=== PATIENT | male | born 1965 | race Caucasian/White ===

== ENCOUNTER 2022-12-07 07:02 | Observation (INO) | payer OTHER ==
[2022-12-04 08:38] LABS: BASOPHILS % 0.6 % (0.0-1.0); EOSINOPHILS # (AUTO) 0.2 (0.0-0.4); EOSINOPHILS % 2.5 % (0.0-6.0); HEMATOCRIT 43.8 % (38.2-49.6); HEMOGLOBIN 15.1 g/dL (14.0-18.0); LYMPHOCYTES # (AUTO) 2.1 (1.0-3.2); LYMPHOCYTES % 31.5 % (18.0-39.1); MEAN CORPUSCULAR HEMOGLOBIN 31.1 pg (28-32); MEAN CORPUSCULAR HGB CONC 34.5 g/dL (31-35); MEAN CORPUSCULAR VOLUME 90.1 fL (81-99); MONOCYTES # (AUTO) 0.6 (0.2-0.8); MONOCYTES % 8.6 % (4.4-11.3); NEUTROPHILS # (AUTO) 3.7 (2.1-6.9); NEUTROPHILS % 56.5 % (38.7-80.0); PLATELET COUNT 170 x10e3/uL (140-360); RED BLOOD COUNT 4.86 x10e6/uL (4.3-5.7); RED CELL DISTRIBUTION WIDTH 12.8 % (11.7-14.4)
[2022-12-04 08:56] LABS: ANION GAP 11.6 mmol/L (8-16); CALCIUM 8.8 mg/dL (8.4-10.2); CREATININE, SERUM 0.86 mg/dL (0.72-1.25); INR 0.92; POTASSIUM 4.6 mmol/L (3.5-5.1); PROTHROMBIN TIME 12.9 seconds (11.9-14.5)
[2022-12-04 08:57] LABS: PARTIAL THROMBOPLASTIN TIME 32.7 seconds (23.8-35.5)
[2022-12-07] VITALS (7 sets, daily range): BP systolic 137–149; BP diastolic 73–90; PULSE 80–90; RESP 16–20; TEMP 98–98.8; O2SAT 96–98
[~2022-12-07] VITALS: Ht 177.8 cm; Wt 113.4 kg
[~2022-12-07 07:02] MED LIST: ACETAMINOPHEN 1000 MG/100 ML 100 ML IV ONE; BUPIVACAINE 0.5%/EPI 30 ML SDV INJ ONE; CRESTOR10 MG PO; LOSARTAN POTASS25 MG PO; ONDANSETRON ODT4 MG PO; PROPRANOLOL HCL80 MG PO; SERTRALINE HCL100 MG PO; SUGAMMADEX SODIUM 200 MG/2 ML VIAL IV ONE; THROMBIN FOR SOLN 5,000 UNIT VIAL ONE; Vancomycin IV 1 GM VIAL ONE; ZETIA10 MG PO
[2022-12-07] MEDS ORDERED: LACTATED RINGER'S 1,000 ML ONE (07:23)
[2022-12-07] MEDS ORDERED: CEFAZOLIN SODIUM 2 GM ONE (07:23)
[2022-12-07] MEDS: FENTANYL CITRATE/PF 100MCG/2 ML INJ ONE ×2 (10:26→11:00)
[2022-12-07] MEDS ORDERED: HYDROCODON-ACE1 EA12 PO (10:28)
[2022-12-07] MEDS ORDERED: MORPHINE SULFATE 5 MG/ML VIAL IM PRN (10:30)
[2022-12-07] MEDS ORDERED: OXYCODONE/ACETAMINOPHEN 5-325 1 EACH TABLET PO PRN (10:30)
[2022-12-07] MEDS ORDERED: PROMETHAZINE HCL (IM) 25 MG/ML VIAL IM PRN (10:30)
[2022-12-07] MEDS ORDERED: LACTATED RINGER'S 1,000 ML IV SCH (10:30)
[2022-12-07] MEDS ORDERED: ONDANSETRON HCL INJ 2MG/ML 2ML 2 MG/ML VIAL IV PRN (10:30)
[2022-12-07] MEDS ORDERED: ACETAMINOPHEN 325 MG TAB PO PRN (10:30)
[2022-12-07] MEDS ORDERED: MAGNESIUM/ALUMINUM/SIMETHICONE 30 ML UDC PO PRN (10:30)
[2022-12-07] MEDS ORDERED: CARISOPRODOL 350 MG TAB PO PRN (10:30)
[2022-12-07] MEDS ORDERED: ZOLPIDEM TARTRATE 5 MG TAB PO PRN (10:30)
[2022-12-07] MEDS ORDERED: CEPACOL SORE THROAT LOZENGES PO PRN (10:30)
[2022-12-07] MEDS: HYDROMORPHONE 2MG/ML 2 MG/ML ML IV PRN ×3 (11:53→20:25)
[2022-12-07] MEDS ORDERED: FENTANYL CITRATE/PF 100MCG/2 ML INJ ONE (12:52)
[2022-12-07] MEDS ORDERED: KETOROLAC TROMETHAMINE 30 MG/ML VIAL ONE (13:05)
[2022-12-07] MEDS ORDERED: SEVOFLURANE INHAL SOLN 250 ML PEN BTL ONE (13:05)
[2022-12-07] MEDS ORDERED: POVIDONE IODINE 0.05% 0.05 % ML PO ONE (13:05)
[2022-12-07] MEDS ORDERED: EPHEDRINE SULFATE INJ 50 MG/ML VIAL ONE (13:05)
[2022-12-07] MEDS ORDERED: LIDOCAINE HCL 2% LOCAL INJ 5 ML SDV VIAL INJ ONE (13:05)
[2022-12-07] MEDS ORDERED: PROPOFOL IV EMULSION 10 MG/ML 20 ML VIAL ONE (13:05)
[2022-12-07] MEDS ORDERED: ONDANSETRON HCL INJ 2MG/ML 2ML 2 MG/ML VIAL ONE (13:05)
[2022-12-07] MEDS ORDERED: DEXAMETHASONE SOD PHOS INJ 4 MG/ML SDV ONE (13:05)
[2022-12-08] MEDS: HYDROMORPHONE 2MG/ML 2 MG/ML ML IV PRN ×3 (00:33→08:24)
[2022-12-08 00:40] VITALS: BP 122/62; PULSE 78; RESP 17; TEMP 98.3; O2SAT 98
[2022-12-08 04:00] VITALS: BP 112/71; PULSE 79; RESP 20; TEMP 98.6; O2SAT 98
[2022-12-08 08:17] VITALS: BP 165/90; PULSE 84; RESP 19; TEMP 97.9; O2SAT 94
[2022-12-08 09:00] VITALS: BP 165/90; PULSE 84; RESP 19; TEMP 97.9; O2SAT 94
[2022-12-08] MEDS ORDERED: ONDANSETRON HCL 4 MG ORAL DISINTEGRATING TAB PO SCH (09:00)
[2022-12-08] MEDS ORDERED: LOSARTAN POTASSIUM 25 MG TAB PO SCH (09:00)
[2022-12-08] MEDS ORDERED: PROPRANOLOL HCL 80 MG CAPCR PO SCH (09:00)
[2022-12-08] MEDS ORDERED: SERTRALINE HCL 100 MG TAB PO SCH (09:00)
[2022-12-08] MEDS ORDERED: EZETIMIBE 10 MG TAB PO SCH (09:00)
[2022-12-08] MEDS ORDERED: SIMVASTATIN 20 MG TAB PO SCH (21:00)
== END 2022-12-08 10:14 | disposition home or self-care (01) ==
LOC: OR 07:02 → PACU V 10:27 → MED/SURG 11:37
PROVIDERS: ADMIT Neurological Surgery; ATTEND Neurological Surgery
DX: M50.121 Cervical disc disorder at C4-C5 level with radiculopathy (principal); M47.22 Other spondylosis with radiculopathy, cervical region; M43.12 Spondylolisthesis, cervical region; I10 Essential (primary) hypertension; E78.5 Hyperlipidemia, unspecified; Z01.812 Encounter for preprocedural laboratory examination; Z01.818 Encounter for other preprocedural examination; Z85.6 Personal history of leukemia; Z79.899 Other long term (current) drug therapy
CPT/HCPCS: 20931; 22551; 22845; 36415; 71046; 72040; 80048; 85025; 85610; 85730; 86850; 86900; 88304; 88311; G0378 ×2; J0131; J0690 ×2; J1100; J1170 ×2; J1885; J2001; J2405; J2704; J3010; J3370; J7121; Q0162; 76000; C1713